=== PATIENT | male | born 1980 | race Caucasian/White ===

== ENCOUNTER 2019-01-06 18:25 | Observation (INO) | payer BC, OTHER ==
[2019-01-06 19:25] LABS: Bilirubin Negative (Negative); Blood, Urine Negative (Negative); Clarity CLEAR (Clear); Glucose, Urine (Dipstick) Negative (Negative); Leukocyte Negative (Negative); Nitrite Negative (Negative); Protein, Urine (Dipstick) Negative (Neg-Trace); Specific Gravity, Urine 1.029 (1.002-1.036); Urobilinogen 0.2 mg/dL (0.2-1.0)
--- NOTE | 2019-01-06 19:27 | PDOC.FPRHP ---
- History of Present Illness Chief Complaint: dysphagia History of Present Illness: Pt is a 38 y/o presenting from [facility] for dysphagia/odynophagia and throat pain. Pt has a hx/o GERD for 8yrs on Nexium and TUMS regularly. He describes throat pain, cough, fever/chills, and lack of sleep. Sx worse at night and improved with sleeping in the chair. Pt reports symptoms for several weeks, but has become much worse in 2 days and unable to swallow anything. Viscous lidocaine has not helped. [facility] [place] E[facility] physician last week diagnosed him with esophagitis. Then PCP diagnosed with thrush, but was not convinced of diagnosis. He did have GI appt this , but sx became bad enough to go to the ED. denies any additional symptoms. Of note, his sister has had a history of esophageal ulcers, but pt has had no previous episodes in the past. Records reviewed from OSH. Pt states viscous lidocaine, bentyl, protonix, nystatin rinses- all tried this past week has not helped. Pt transferred from [facility] ED. CT neck, Ct chest, and CT abd pelvis done there. ED Course: IV PPI given, labs re-drawn, cultures obtained. PT febrile, tachycardic. - Allergies/Adverse Reactions Allergies Allergy/AdvReac Type Severity Reaction Status Date / Time No Known Drug Allergies Allergy Verified 01/06/19 23:44 - Home Medications Comments: Nexium, TUMS, valium, antifungal, protonix - History PMHx:GERD PSHx: nerve surgery on feet, inguinal hernia repair FHx:n/a Social: social ETOH drinker on weekends, nonsmoker, no drug use - Review of Systems General: reports: fever/chills, night sweats, fatigue Eyes: denies: eye pain, vision changes ENT: denies: nasal congestion, rhinorrhea Respiratory: reports: cough. denies: congestion, shortness of breath Cardiovascular: reports: chest pain. denies: palpitation, paroxysmal nocturnal dyspnea Gastrointestinal: reports: diarrhea. denies: nausea, vomiting, constipation, abdominal pain, GI bleeding Genitourinary: denies: dysuria, polyuria Skin: denies: rashes, lesions Musculoskeletal: denies: pain, tenderness Neurological: denies: numbness, syncope, seizure Psychological: denies: anxiety, depression - Vital signs BP: [175/94] HR: [107] RR: [20] Tmax: [102.7] Pox: [95]% on [RA] Wt: [143 kg] - Physical Exam Constitutional: NAD, awake, alert and oriented, well developed HEENT: normocephalic and atraumatic, PERRLA, EOMI (severe ulcerations in posterior pharnyx, extendding scattered in to oropharnyx. poor dentition with caps present.) Neck: supple (mild TTP), trachea midline, no LAD, no JVD, no thyromegaly Chest: no-tender to palpation, no lesions Heart: normal S1/S2, no murmurs/rubs/gallops, pulses present, no edema (mild tachycardia) Lungs: CTAB, no respiratory distress, good air movement Abdomen: soft, non-tender, bowel sounds present (obese) Musculoskeletal: normal structure Neurological: no focal deficit, normal sensation Skin: no rash/lesions, good turgor, capillary refill <2 seconds Heme/Lymphatic: no unusual bruising or bleeding, no purpura, no petechia Psychiatric: normal mood and affect, good judgment and insight FMR H&P: Results - Labs Result Diagrams: 01/07/19 05:54 01/07/19 05:54 Lab results: Urine Ketones Trace mg/dL (Negative) H 01/06/19 19:09 Urine Blood Negative (Negative) 01/06/19 19:09 Urine Nitrite Negative (Negative) 01/06/19 19:09 Ur Leukocyte Esterase Negative (Negative) 01/06/19 19:09 - EKG Interpretation EKG: Sinus tachycardia - Radiology Interpretation CT scan - chest Status: report reviewed by me Additional comment: CT Chest/Neck: Mildly thickened thoracic esophagus extending to level of travis. No air or fluid collections seen. Fat stranding and fluid density in proximal thoracic esophagus. CT Abdomen Pelvis: Sigmoid diverticula FMR H&P: A/P - Problem List (1) Sepsis Current Visit: Yes Status: Acute Code(s): A41.9 - SEPSIS, UNSPECIFIED ORGANISM (2) Esophagitis Current Visit: Yes Status: Acute Code(s): K20.9 - ESOPHAGITIS, UNSPECIFIED (3) Oral ulcer Current Visit: Yes Status: Acute (4) GERD (gastroesophageal reflux disease) Current Visit: Yes Status: Chronic Code(s): K21.9 - GASTRO-ESOPHAGEAL REFLUX DISEASE WITHOUT ESOPHAGITIS (5) Moderate dehydration Current Visit: Yes Status: Acute Code(s): E86.0 - DEHYDRATION - Plan Esophagitis -Odynophagia -CT neck/Chest showed no free air at [facility] -Gi consulted, Dr. Santiago, 01/06/19 -NPO for EGD in AM -Protonix IV BID -Morphine PRN for pain control Concern for Sepsis, no known source -Fever 102.7, tachycardic, WBC 15 -empiric Vanc and zosyn -UA neg, urine and blood cultures pending -CT chest showed no pneumonia in [place] -Influenza neg -Continue to monitor Oral Ulcers -HSV PCR swab/serum -CMV pending, RPR pending -start IV Acyclovir Moderate dehydration -2L NS prior to arrival, give 1L NS now -then MIVF NS 150 ml/hr -NPO for EGD in AM Diet: NPO GI ppx: Protonix BID Dispo: medical inpatient DVT ppx: SCDs PCP: [facility] Dr. Mckenzie Code status: Full FMR H&P: Upper Level - Pertinent findings CT Chest/Neck: Mildly thickened thoracic esophagus extending to level of travis. No air or fluid collections seen. Fat stranding and fluid density in proximal thoracic esophagus. CT Abdomen Pelvis: Sigmoid diverticula - Plan Date/Time: 01/06/191926 Talha Lagunas, have evaluated this patient and agree with findings/plan as outlined by dietetic intern resident. Pertinent changes/additions are listed here. 1. Esophagitis - Unknown etiology. Possible infectious vs erosion vs systemic disease. Will speak with GI and recommend endoscopy and biopsy. Will also try to treat discomfort as pt unable to tolerate PO, speak, and has continuous pain. For additional workup, will swab for HSV, test HIV status, order procal, and repeat basic lab work. Continue IV PPI and symptomatic medications. Most likely erosive espohagitis 2/2 poorly controlled severe reflux disorder. 2. Presumend Sepsis - Most likely etiology is infectious esophagitis as he has no other additional sx and abdominal exam benign. Will obtain cultures, broad spectrum abx, IVF. WBC elevated at 14 at OSH. Did receive abx at OSH. Antipyretics for fever. S/p 2L NS at OSH, will bolus again and give MIVF. 3. GERD - IV PPI Addendum - Attending - Attending Attestation Date/Time: 01/07/19 2461 I personally evaluated the patient and discussed the management with Dr. Rishi De Jesus I agree with the History, Examination, Assessment and Plan documented above with any addition or exceptions noted below.
[2019-01-06] MEDS ORDERED: Acetaminophen 500 MG TAB ONE (19:31)
[2019-01-06 19:37] LABS: #Basophils 0.1 thou/uL (0.0-0.2); #Eosinphils 0.1 thou/uL (0.0-0.7); #Monocytes 1.5 thou/uL (0.11-0.59); #Neutrophils 10.5 thou/uL (1.40-6.50); %Basophils 0.5 % (0.0-1.0); %Eosinophils 0.6 % (0.0-10.0); %Lymphocytes 19.9 % (21.0-51.0); %Monocytes 9.8 % (0.0-10.0); %Neutrophils 69.2 % (42.0-75.0); Hemoglobin 14.6 g/dL (14.0-18.0); Mean Corpuscular HGB CONC 33.3 g/dL (32.0-36.0); Mean Corpuscular Hemoglobin 29.5 pg (27.0-31.0); Mean Corpuscular Volume 88.6 fL (78.0-98.0); Mean Platelet Volume 7.9 fL (7.4-10.4); Platelet Count 225 thou/uL (130-400); RBC Distribution Width 11.5 % (11.5-14.5); Red Blood Cell (RBC) Count 4.94 mill/uL (4.70-6.10); White Blood Cell (WBC) Count 15.1 thou/uL (4.8-10.8)
[2019-01-06 19:59] LABS: ALT (SGPT) 37 U/L (8-55); AST (SGOT) 19 U/L (5-34); Albumin 4.2 g/dL (3.5-5.0); Alkaline Phosphatase 67 U/L (40-150); Anion Gap 14 mmol/L (10-20); BUN (Urea Nitrogen) 14 mg/dL (8.9-20.6); Bilirubin, Total 0.7 mg/dL (0.2-1.2); Calc. Creatinine Clearance 0 mL/min (70-130); Calcium 9.1 mg/dL (7.8-10.44); Carbon Dioxide 27 mmol/L (22-29); Chloride 98 mmol/L (98-107); Estimated GFR-MDRD 69; Globulin 2.8 g/dL (2.4-3.5); Glucose 89 mg/dL (70-105); Sodium 135 mmol/L (136-145)
[2019-01-06] MEDS ORDERED: Vancomycin HCl 1 GM in Premix Bag 1 BAG IVPB SCH ×2 (20:30→23:15)
[2019-01-06] MEDS ORDERED: Piperacillin/Tazobactam 3.375 GM in Sodium Chloride 0.9% 100 ML IVPB SCH (21:00)
[2019-01-06] MEDS: Sodium Chloride 0.9% 1,000 ML IV SCH (21:04)
[2019-01-06] MEDS ORDERED: Sodium Chloride 0.9% 1,000 ML IV SCH (21:15)
[2019-01-06] MEDS ORDERED: Morphine 4 MG/ML VIAL SLOW IVP PRN (21:30)
[2019-01-06] MEDS ORDERED: SODIUM CHLORIDE 0.9% IVPB SCH (22:00)
[2019-01-06] MEDS ORDERED: ACYCLOVIR SODIUM IVPB SCH (22:00)
--- NOTE | 2019-01-06 22:13 | PDOC.EVN ---
Addendum - Attending - Attending Attestation Date/Time: 01/06/19 3400 I personally evaluated the patient and discussed the management with Drs. Zhang/Rishi De Jesus I agree with the History, Examination, Assessment and Plan documented in the HX and physical 38 yo male transferred from [place] ER with progressive dysphagia and sore throat last 5 days . Patient with inability to take po secondary to pain was on viscous xylocaine with little lasting relief. 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 Patient was diagnosed with questionable thrush . Patient seen by ENT for persistent symptoms and fiberoptic pharyngeal larynygeal exam and rec to see GI for endoscopy for esophagitis. Patient symptoms worsened and presented [facility] ER and CT with contrast with cervical adenopathy and thickened esophagus no evidence of perforation or mediastinitis. Patient interviewed and examined in presence of spouse and children . No risk factors for immune deficiency. No recent pill that would cause esophagitis such as tetracycline , Feel prudent to draw HIV, CMV and HSV studies. Exam no white patches suggestive of thrush marked gingival disease and hard palate with several ulcerated lesions. GI was consulted and appreciate rec will start IV PPI empirical antiviral and broad spectrum ABX sepsis w/u. Procalcitonin and lactate level fluid replacement and plan endoscopy per GI.
[2019-01-06] MEDS: Morphine 4 MG/ML VIAL SLOW IVP PRN (22:18)
[2019-01-06] MEDS: Pantoprazole 40 MG VIAL IVP SCH (22:22)
[2019-01-06 22:43] LABS: Syphilis Antibody Nonreactive (Nonreactive); Syphilis Antibody Index 0.08 S/CO (<1.00 Non-Reactive)
[2019-01-06] MEDS: Fluconazole In NaCl,Iso-Osm 400 MG in Premix Bag 1 BAG IVPB SCH (23:32)
[2019-01-07 00:06] LABS: HIV (1/2) Antibody/Antigen Non-Reactive (NonReactive); HIV 1/2 INDEX 0.18 S/CO (<1.00)
[2019-01-07] MEDS: Fluconazole In NaCl,Iso-Osm 400 MG in Premix Bag 1 BAG IVPB SCH (01:36)
[2019-01-07] MEDS: SODIUM CHLORIDE 0.9% IVPB SCH ×3 (02:29→18:11)
[2019-01-07] MEDS: ACYCLOVIR SODIUM IVPB SCH ×3 (02:29→18:11)
[2019-01-07] MEDS: Sodium Chloride 0.9% 1,000 ML IV SCH ×3 (04:17→11:14)
[2019-01-07] MEDS: Morphine 4 MG/ML VIAL SLOW IVP PRN (04:39)
[2019-01-07 06:35] LABS: #Basophils 0.1 thou/uL (0.0-0.2); #Eosinphils 0.3 thou/uL (0.0-0.7); #Lymphocytes 2.6 thou/uL (1.20-3.40); #Monocytes 1.1 thou/uL (0.11-0.59); #Neutrophils 6.7 thou/uL (1.40-6.50); %Basophils 0.6 % (0.0-1.0); %Eosinophils 2.8 % (0.0-10.0); %Lymphocytes 24.6 % (21.0-51.0); Hemoglobin 13.2 g/dL (14.0-18.0); Mean Corpuscular HGB CONC 33.6 g/dL (32.0-36.0); Mean Corpuscular Hemoglobin 29.9 pg (27.0-31.0); Mean Corpuscular Volume 88.7 fL (78.0-98.0); Mean Platelet Volume 7.6 fL (7.4-10.4); Platelet Count 186 thou/uL (130-400); RBC Distribution Width 11.4 % (11.5-14.5); Red Blood Cell (RBC) Count 4.41 mill/uL (4.70-6.10); White Blood Cell (WBC) Count 10.7 thou/uL (4.8-10.8)
[2019-01-07 06:43] LABS: Anion Gap 10 mmol/L (10-20); BUN (Urea Nitrogen) 13 mg/dL (8.9-20.6); Calc. Creatinine Clearance 190 mL/min (70-130); Calcium 8.4 mg/dL (7.8-10.44); Carbon Dioxide 29 mmol/L (22-29); Chloride 102 mmol/L (98-107); Estimated GFR-MDRD 77; Glucose 89 mg/dL (70-105); Potassium 4.1 mmol/L (3.5-5.1); Sodium 137 mmol/L (136-145)
--- NOTE | 2019-01-07 07:12 | PDOC.FM ---
- Subjective Subjective: Mr. Velasquez reports continued throat pain, painful coughing. Has coughed up minimal. Denies fever/chills. - Objective Vital Signs & Weight: Vital Signs (12 hours) Temp Pulse Resp BP Pulse Ox 01/07/19 04:00 98.2 F 84 18 129/73 93 L 01/07/19 00:00 97.9 F 74 18 125/77 95 01/06/19 21:14 99.1 F 96 16 124/83 96 Weight Weight 143.34 kg I&O: 01/06/19 01/07/19 01/08/19 06:59 06:59 06:59 Intake Total 4349 Balance 4349 Result Diagrams: 01/07/19 05:54 01/07/19 05:54 Phys Exam - Physical Examination ulceractions buccal mucosa Respiratory: no wheezing, clear to auscultation bilateral Cardiovascular: RRR, no significant murmur Gastrointestinal: soft, non-tender, positive bowel sounds Musculoskeletal: no edema Neurological: non-focal Psychiatric: normal affect Skin: normal turgor Dx/Plan (1) Esophagitis Code(s): K20.9 - ESOPHAGITIS, UNSPECIFIED Status: Acute (2) Moderate dehydration Code(s): E86.0 - DEHYDRATION Status: Acute (3) Oral ulcer Status: Acute (4) GERD (gastroesophageal reflux disease) Code(s): K21.9 - GASTRO-ESOPHAGEAL REFLUX DISEASE WITHOUT ESOPHAGITIS Status: Chronic - Plan Plan: Esophagitis with oral ulcers -Odynophagia -CT neck/Chest showed no free air at [place] -Gi consulted, Dr. Santiago, plan for EGD today -Protonix IV BID -Morphine PRN for pain control - HIV, syphilis negative. pending HSV, CMV - on IV acyclovir (01/06) SIRS -Fever 102.7, tachycardic, WBC 15 on admission -empiric Vanc and zosyn (01/06) -UA neg, urine and blood cultures pending -CT chest showed no pneumonia in [place] -Influenza neg Moderate dehydration -NS 150 ml/hr -NPO for EGD in AM Diet: NPO GI ppx: Protonix BID DVT ppx: SCDs PCP: CHAKA Mckenzie Dispo: pending GI scope today Addendum - Attending - Attending Attestation Date/Time: 01/07/19 9503 I personally evaluated the patient and discussed the management with Dr. Baker and team. I agree with and repeated the History, Examination, Assessment and Plan documented above with any addition or exceptions noted below. Also no cp/sob. He is feeling much better. He looks "100% better compared with when I brought him in." His exam is unremarkable. Dispo pending GI.
[2019-01-07] MEDS ORDERED: Piperacillin/Tazobactam 3.375 GM in Sodium Chloride 0.9% 100 ML IVPB SCH (08:00)
[2019-01-07] MEDS: Pantoprazole 40 MG VIAL IVP SCH ×2 (08:46→20:12)
[2019-01-07] MEDS ORDERED: Vancomycin HCl 1.75 GM in Sodium Chloride 0.9% 500 ML IVPB SCH (09:00)
[2019-01-07] MEDS ORDERED: Promethazine HCl 25 MG/ML VIAL IM PRN (10:36)
[2019-01-07] MEDS ORDERED: Ondansetron HCl/PF 4 MG/2 ML Vial IVP PRN (10:36)
[2019-01-07] MEDS ORDERED: Promethazine HCl 25 MG/ML VIAL SLOW IVP PRN (10:36)
[2019-01-07] MEDS ORDERED: Lidocaine Viscous Sol 2% 15 ml UD Cup SSP PRN (11:04)
[2019-01-07] MEDS: Benzonatate 100 MG CAP PO PRN (12:58)
[2019-01-07 13:07] VITALS: BMI 41.8
[2019-01-07] MEDS: Dicyclomine 20 MG TAB PO SCH ×4 (13:07→20:11)
[2019-01-07] MEDS ORDERED: PROPOFOL 200 MG/20 ML VIAL ONE (13:21)
[2019-01-07] MEDS ORDERED: Lidocaine 1% PF 5 ML VIAL ONE (13:21)
--- NOTE | 2019-01-07 16:59 | OP ---
DATE OF PROCEDURE: 01/07/2019 PREPROCEDURE DIAGNOSES: 1. Oropharyngeal dysphagia with odynophagia. 2. Questionable abnormal CAT scan of proximal esophagus on an outside study. 3. Oral ulcers, likely viral. POSTPROCEDURE DIAGNOSES: 1. There is some white material in the back of the tongue. There is also edema and exudate on the arytenoid cartilage. There are some oral ulcers in the mouth. Differential diagnosis of this could include partially treated Liz or viral pharyngitis. 2. Esophagus is normal proximally and all the way down to the distal esophagus. In the distal esophagus at about 5 cm above the gastroesophageal junction, there is one small aphthoid-like erosion. This was biopsied. 3. At the gastroesophageal junction, there were some confluent ulcerations right at the gastroesophageal junction consistent with reflux. Differential diagnosis would include atypical viral infection. Biopsies obtained. 4. Normal stomach. 5. Normal duodenum. RECOMMENDATIONS: 1. If the patient has persistent cough or difficulty with respiration, ENT needs to be consulted with regard to the edema and exudate around the arytenoid cartilage and above the true vocal cords. 2. I would decrease his IV fluids as it maybe some of his cough is from fluid overload. 3. I think he can probably discontinue his antibiotics. 4. I would continue the fluconazole and acyclovir IV. 5. We could start viscous lidocaine. 6. Clear liquids as tolerated. 7. Continue IV Protonix q.12 hours. 8. Elevate head of bed at 60 degrees all times. PROCEDURE PERFORMED: Esophagogastroduodenoscopy with biopsy. PROCEDURE IN DETAIL: The patient was informed of the risks, benefits, and possible complications of endoscopy including perforation, reaction to medication, and aspiration. Informed consent was obtained. The patient was brought to the endoscopy suite, where he was sedated in gradual fashion. Once he was comfortable, a bite block was placed inside the orifice. The endoscope was advanced through the esophagus, stomach, and the second and third portions of the duodenum and slowly removed. There was good visualization of the esophagus, stomach, and duodenum. In the mouth, he had some oral ulcers, which were seen on physical exam. These were very small and punctate, and it did not cover most of the mucosa. In the throat on the arytenoid cartilage over the mucosa overlying the arytenoid cartilage and actually dipping into the larynx just above the true vocal cords, there was some exudate and erosion, likely viral, but a possible partially treated Liz could not be completely ruled out. This was not biopsied with the biopsy by ENT if that were desired. I would only do that if his symptoms were not improving with the current treatment. He did have some whitish material in the back of the tongue, but this was dry tongue. It could be partially treated Liz, however. The scope was advanced to the esophagus easily. The esophagus was normal in its entirety except for the distal esophagus. The GE junction was at about 45 cm in this area. There were several small linear erosions consistent with severe LA grade B reflux esophagitis. Differential diagnosis would include a viral-like process, but that would be atypical at the GE junction and biopsies were obtained for this. About 3 cm above this, there was a small aphthoid erosion that was biopsied and placed in a separate jar, that could be healing reflux or related to viral illness. The remainder of the esophagus in the mid and proximal esophagus were completely normal up to the proximal esophageal sphincter. This was the area, where apparently on outside CT scan, there was reported thickening in esophagitis, but the esophagus looked normal in this area. The scope was advanced into the stomach, duodenum, and second and third portions, all of which were normal. Retroflexed views were normal. The scope was removed. The patient tolerated the procedure well. There were no complications. I will follow from a distance and wait biopsies. If I can be of any further assistance, please do not hesitate to contact me. Job ID: [id number]
[2019-01-07] MEDS: Acetaminophen 500 MG TAB PO PRN (18:10)
[2019-01-07] MEDS ORDERED: Fluconazole In NaCl,Iso-Osm 400 MG in Premix Bag 1 BAG IVPB SCH (21:00)
[2019-01-08] MEDS: Acetaminophen 500 MG TAB PO PRN ×3 (00:28→11:11)
[2019-01-08] MEDS: Benzonatate 100 MG CAP PO PRN ×2 (00:40→08:30)
[2019-01-08] MEDS: Sodium Chloride 0.9% 1,000 ML IV SCH ×2 (00:51→08:36)
[2019-01-08] MEDS: SODIUM CHLORIDE 0.9% IVPB SCH ×2 (03:06→11:12)
[2019-01-08] MEDS: ACYCLOVIR SODIUM IVPB SCH ×2 (03:06→11:12)
--- NOTE | 2019-01-08 07:15 | PDOC.FM ---
- Subjective Subjective: Mr. Velasquez is feeling much better today. Says he ate a full normal meal last night. Continues to have oral pain where ulcerations are. Wants to go home. - Objective Vital Signs & Weight: Vital Signs (12 hours) Temp Pulse Resp BP Pulse Ox 01/08/19 04:42 98.4 F 79 18 99/67 96 01/08/19 00:13 98.3 F 72 18 134/79 98 Weight Admit Weight 143.34 kg Weight 143.34 kg I&O: 01/07/19 01/08/19 01/09/19 06:59 06:59 06:59 Intake Total 4349 3052 Balance 4349 3052 Result Diagrams: 01/07/19 05:54 01/07/19 05:54 Phys Exam - Physical Examination Constitutional: NAD ulcerations in mouth Respiratory: clear to auscultation bilateral Cardiovascular: RRR Dx/Plan (1) Esophagitis Code(s): K20.9 - ESOPHAGITIS, UNSPECIFIED Status: Acute (2) Moderate dehydration Code(s): E86.0 - DEHYDRATION Status: Acute (3) Oral ulcer Status: Acute (4) GERD (gastroesophageal reflux disease) Code(s): K21.9 - GASTRO-ESOPHAGEAL REFLUX DISEASE WITHOUT ESOPHAGITIS Status: Chronic - Plan Plan: Esophagitis with oral ulcers -Odynophagia -CT neck/Chest showed no free air at [place] -Gi consulted, Dr. Santiago, appreciate recommendations - EGD done 01/07, biopsy from distal esophagus results pending - To discharge on PPI, acyclovir and fluconazole to complete course - HIV, syphilis negative. pending HSV, CMV - on IV acyclovir (01/06), fluconazole SIRS -Fever 102.7, tachycardic, WBC 15 on admission -empiric Vanc and zosyn (01/06) -UA neg, urine and blood cultures pending -CT chest showed no pneumonia in [place] -Influenza neg Moderate dehydration -Discontinue IVF -NPO for EGD in AM Diet: NPO GI ppx: Protonix BID DVT ppx: SCDs PCP: CHAKA Mckenzie Dispo: discharge today Addendum - Attending - Attending Attestation Date/Time: 01/08/19 3216 I personally evaluated the patient and discussed the management with Dr. Baker I agree with the History, Examination, Assessment and Plan documented above with any addition or exceptions noted below. Patient requesting discharge. Much improved. Home on fluconazole and acyclovir.
[2019-01-08] MEDS: Dicyclomine 20 MG TAB PO SCH (08:30)
[2019-01-08] MEDS: Pantoprazole 40 MG VIAL IVP SCH (08:30)
--- NOTE | 2019-01-08 08:49 | CON ---
DATE OF CONSULTATION: REASON FOR CONSULTATION: "Esophagitis." HISTORY OF PRESENT ILLNESS: Mr. Velasquez is a 38-year-old gentleman, who about a week ago began illness with a low-grade temperature and severe dysphagia and some throat pain. Shortly after this, he began noticing some ulcers in his mouth. He did see ENT, who felt that he probably had esophagitis. It is unclear if biopsies were obtained. He was placed on PPIs. He tried some Tums and also [id number] brand omeprazole, which he had taken for reflux in the past. He has had some cough and fever and chills as well. With symptoms worsening, he has seen his PCP, who placed him empirically on some medication for thrush, but that did not help either. Ultimately, he ended up at the emergency room yesterday and had a CAT scan of his chest, abdomen, and pelvis. I do not have those results to review. Apparently, he had a thickened esophagus, may be some fat stranding, but no evidence of mediastinitis. He is admitted by the [facility] here and placed on multiple antibiotics. At home, last treatment was viscous lidocaine, Bentyl, Protonix, nystatin rinses. PAST MEDICAL HISTORY: Reflux. PAST SURGICAL HISTORY: Neuroma on the foot, inguinal hernia repair, testicular torsion on the right repair. MEDICATIONS: Medications at home; 1. PPI. 2. Tums. 3. Valium. 4. Antifungal. 5. Protonix. Present medications here; 1. Fluconazole. 2. Acyclovir IV started this morning. 3. Morphine. 4. Protonix. 5. Zosyn. 6. IV fluids 150 mL an hour of normal saline. 7. Vancomycin. FAMILY HISTORY: Sister with some esophagus problems. SOCIAL HISTORY: He drinks alcohol on the weekends. Nonsmoker. No drug use. REVIEW OF SYSTEMS: GENERAL: He denies recent steroids, recent antibiotics, or new medications. He denies getting a food or pill stuck. EYES: Negative. ENT: Throat pain. RESPIRATORY: Cough, some congestion, mild shortness of breath. CARDIOVASCULAR: Chest pain with deep inspiration. GI: Some diarrhea. No nausea, vomiting, or constipation. No bleeding, melena, hematochezia, or hematemesis. : Negative. SKIN: Negative. MUSCULOSKELETAL: Negative. PHYSICAL EXAMINATION: VITAL SIGNS: Apparently, he was very tachycardic in the emergency room with a heart rate of 130 on presentation, pulse is now 81, temperature 97.6, blood pressure 127/78. HEENT: Oropharynx, he has ulcers in his lips and mouth. There is no thrush. NECK: Supple without any adenopathy. LUNGS: Notable for some slight rales in the bases. HEART: Regular rate and rhythm. EXTREMITIES: No clubbing, cyanosis, or edema. SKIN: Without rash or lesions. LABORATORY DATA: White count 15,000 yesterday, 10,000 today; hemoglobin 13.2; platelet count 186. Comprehensive metabolic profile normal. Procalcitonin and lactic acid are normal. HIV serology negative. ASSESSMENT: Esophagitis, likely viral with oral ulcers, erosions. You can stop the vancomycin and the Zosyn and the fluconazole. Continue the antiviral. We will proceed with EGD today and get some biopsies. Job ID: [id number]
[2019-01-08] MEDS ORDERED: Fluconazole In NaCl,Iso-Osm 200 MG in Premix Bag 1 BAG IVPB SCH (09:00)
[2019-01-08 11:33] VITALS: BP 121/73; TEMP 97.8
--- NOTE | 2019-01-09 10:53 | DIS ---
DATE OF ADMISSION: 01/06/2019 DATE OF DISCHARGE: 01/08/2019 RESIDENT: Nina Baker DO. ADMITTING ATTENDING: Fabian Dickinson MD. DISCHARGE ATTENDING: Brittney Tony MD CONSULTS: GI, Dr. Santiago. PROCEDURES: On 01/07/2019, EGD showed some white matter in the back of the tongue. There is also edema and exudate on the arytenoid cartilage and some oral ulcers in the mouth. Differential diagnosis of this could include partially treated Liz or viral pharyngitis. Esophagus is normal proximally and all the way down to the distal esophagus. In the distal esophagus at about 5 cm above the gastroesophageal junction, there is one small aphthoid like erosion which was biopsied. At the gastroesophageal junction, there were some confluent ulcerations right at the gastroesophageal junction consistent with reflux and biopsies were obtained. Normal stomach and duodenum. PRIMARY DIAGNOSES: 1. Esophagitis with oral ulcers secondary to virus versus yeast. 2. Systemic inflammatory response syndrome criteria positive. 3. Moderate dehydration. DISCHARGE MEDICATIONS: 1. Ibuprofen 800 mg p.o. q.6 hours p.r.n. 2. Dicyclomine 20 mg p.o. q.i.d. 3. Pantoprazole 40 mg p.o. b.i.d. 4. TUMS one tablet p.o. b.i.d. p.r.n. 5. Diazepam 5 mg p.o. b.i.d. 6. Multivitamin one tablet p.o. daily. 7. Acetaminophen 1000 mg p.o. q.6 hours p.r.n. 8. Acyclovir 400 mg p.o. t.i.d. for 5 days, #15. 9. Tessalon 100 mg p.o. t.i.d. p.r.n., #30. 10. Fluconazole 200 mg p.o. daily for 12 days, #12. 11. Lidocaine 2% viscous solution, 15 mL q.6 hours p.r.n. DISCONTINUED MEDICATIONS: 1. Nystatin oral suspension, 5 mL swish and spit q.i.d. 2. Esomeprazole 20 mg p.o. b.i.d. HISTORY OF PRESENT ILLNESS: A 38-year-old male, presented for dysphagia and throat pain. He has a past medical history that includes GERD, taking Nexium and TUMS regularly. He had seen an ENT physician in the outpatient setting that diagnosed him with esophagitis. The patient was admitted for this. The patient met SIRS criteria with fever, tachycardia, and leukocytosis on admission. Empiric vancomycin and Zosyn were started, but then discontinued. GI was consulted and performed EGD with findings as above. The patient did have a chest CT completed in the [place] [facility]. The patient was checked for RPR negative, HIV negative, HSV negative, CMV IgM antibody less than 30, IgG antibody 2.0. Some of these results did not come until at the time of discharge. GI recommended continuation of PPI, fluconazole, and acyclovir for discharge. The patient's status improved throughout hospitalization. He tolerated a normal diet prior to discharge. DISPOSITION: Stable. DISCHARGE INSTRUCTIONS: 1. Location: Home. 2. Diet: Regular. 3. Activity: As tolerated. 4. Followup: Followup with Dr. Santiago. Followup with PCP, Dr. Russell at the [facility] within 7 days. Job ID: [id number]
[2019-01-10 00:07] LABS: HSV 2 - DNA Negative (Negative)
== END 2019-01-08 12:37 | disposition home or self-care (01) ==
LOC: ERS 18:25 → EDBD 18:25 → T4-B 19:00
PROVIDERS: ADMIT Family Medicine; ATTEND Family Medicine
PROC: 0DB48ZX Excision of Esophagogastric Junction, Via Natural or Artificial Opening Endoscopic, Diagnostic (ICD-10-PCS; principal; 2019-01-07)
PROC: 0DB58ZX Excision of Esophagus, Via Natural or Artificial Opening Endoscopic, Diagnostic (ICD-10-PCS; 2019-01-07)
DX: K22.10 Ulcer of esophagus without bleeding (principal); K12.1 Other forms of stomatitis; K21.0 Gastro-esophageal reflux disease with esophagitis; E86.0 Dehydration; R65.10 Systemic inflammatory response syndrome (SIRS) of non-infectious origin without acute organ dysfunction; Z79.899 Other long term (current) drug therapy
CPT/HCPCS: 36415; 80048; 80053; 81003; 83605; 84145; 85025; 86644; 86645; 86780; 87040; 87086; 87389; 87529; 87804; 88305; 88312; 88313; 93005; 93010; 96361; 96365; 96366; 96367; 96368; 96375; 96376; C9113; G0378; J0133; J1450; J2001; J2270; J2543; J2704; J3370; J3490; J7050